=== PATIENT | female | born 1975 | race Caucasian/White ===

== ENCOUNTER → 2017-07-18 06:39 | Outpatient (CLI) | payer OTHER, SELFPAY | PROVIDERS: Family Provider Family Medicine; PCP Family Medicine; Visit Provider Nurse Practitioner Family | DX: L40.0 Psoriasis vulgaris (principal); Z79.899 Other long term (current) drug therapy ==

== ENCOUNTER → 2017-10-24 06:07 | Outpatient (CLI) | payer OTHER, SELFPAY ==
[2017-10-24 07:21] LABS: Absolute Lymphocyte Count 1.23 X10^3/ul (0.83-4.51); Absolute Neutrophil Count 1.9 X10^3/uL (2.0-7.7); Basophil# 0.01 X10^3/uL; Basophil% 0.3 % (0-1); Eosinophil# 0.03 X10^3/uL; Eosinophils% 0.9 % (0-5); Hematocrit 37.1 % (37-47); Hemoglobin 12.1 g/dl (12.0-15.0); Lymphocyte # 1.23 X10^3/ul (4.0); Lymphocyte % 35.5 % (19-41); Mean Corp Hgb Conc 32.6 g/gl (32-36); Mean Corpuscular Hgb 31.2 pg (27.0-32.0); Mean Corpuscular Volume 95.6 fL (81-99); Mean Platelet Vol. 9.2 fl (6.2-12.0); Monocyte# 0.26 X10^3/uL; Monocyte% 7.5 % (0-10); Neutrophil # 1.93 X10^3/uL (2.7-7.7); Neutrophil % 55.8 % (47-70); Platelet Count 221 K/mm3 (150-450); RBC Distribution Width CV 12.7 % (11.6-14.6); Red Blood Count 3.88 M/mm3 (4.2-5.4); White Blood Count 3.5 K/mm3 (4.4-11.0)
[2017-10-24 07:22] LABS: POSITIVE COUNT NO; POSITIVE DIFFERENTIAL NO; POSITIVE MORPHOLOGY NO
== END ==
PROVIDERS: Family Provider Family Medicine; PCP Family Medicine; Visit Provider Nurse Practitioner Family
DX: L82.1 Other seborrheic keratosis (principal); L40.0 Psoriasis vulgaris
CPT/HCPCS: 36415; 85025

== ENCOUNTER → 2018-01-22 16:04 | Outpatient (CLI) | payer OTHER, SELFPAY ==
[2018-01-28 11:02] LABS: HPV Reflexed? NOT INDICATED
== END ==
PROVIDERS: Visit Provider Obstetrics & Gynecology
DX: Z12.4 Encounter for screening for malignant neoplasm of cervix (principal)
CPT/HCPCS: 88175; G0145

== ENCOUNTER → 2018-02-19 14:11 | Outpatient (CLI) | payer OTHER, SELFPAY ==
--- NOTE | 2018-02-19 14:14 | BI_ITS ---
MAMMOGRAPHY - BILATERAL SCREENING REASON FOR EXAM: Female, 42 years old. Routine annual screening examination. PERTINENT HISTORY: Mother with breast cancer. TECHNIQUE: Digital bilateral breast jessica (3D mammographic acquisition) in the CC and MLO projections. 2-D mediolateral oblique (MLO) and craniocaudad (CC) views of both breasts were obtained. CAD: Full Field Digital Mammography with Computer Added Detection was performed. COMPARISON: Comparison is made with prior study dated December 14, 2016 and November 21, 2015. FINDINGS: Breast Composition: The breasts are heterogeneously dense, which may obscure small masses. There are no dominant masses or suspicious calcifications. No other significant abnormalities are identified. There has been no significant change since the prior study. BI/SCREENING MAMM (CAD), BILAT IMPRESSION: Stable bilateral screening mammogram. Yearly follow-up mammogram recommended. (A) ASSESSMENT CATEGORY: BIRADS Category 1: Negative. A letter regarding these results will be sent to the patient by the facility within 30 days. Approximately 10% of breast cancers are not detected by mammography. A normal mammogram should not delay biopsy of a clinically suspicious abnormality. [id number] Electronically Signed: Israel Tafoya MD at 8:06 EDT Tel [phone], Service support ,
== END ==
PROVIDERS: Family Provider Family Medicine; PCP Family Medicine; Visit Provider Obstetrics & Gynecology
DX: Z12.31 Encounter for screening mammogram for malignant neoplasm of breast (principal)
CPT/HCPCS: 77063; 77067

== ENCOUNTER 2018-05-09 05:29 | Day surgery (SDC) | payer OTHER, SELFPAY ==
[2018-05-09 05:44] VITALS: BP 119/91; PULSE 72; RESP 12; TEMP 37.1; O2SAT 100; BMI 22.8
[2018-05-09 05:51] LABS: Internal QC Validated? YES +Cl - CLEAR BKGD; Pregnancy, Urine Negative Negative
[2018-05-09 07:52] VITALS: BP 116/72; BP 119/91; PULSE 70; RESP 16; TEMP 36.8; O2SAT 94
[2018-05-09 07:55] VITALS: BP 110/77; BP 119/91; PULSE 65; RESP 16; O2SAT 94
[2018-05-09 08:00] VITALS: BP 106/71; BP 119/91; PULSE 62; RESP 16; O2SAT 95
[2018-05-09 08:05] VITALS: BP 111/73; BP 119/91; PULSE 65; RESP 16; TEMP 36.6; O2SAT 95
--- NOTE | 2018-05-09 08:09 | OP.PCM_ITS ---
Operative Report Date of Procedure: 05/09/18 Preoperative diagnosis: Right Carpal tunnel syndrome Postoperative diagnosis: Same Title of operation: Open right carpal tunnel release Surgeon: Dr. Peter Rodgers Anesthesia: Local w MAC Indications for surgery: Patient seen and evaluated in the office. Diagnosed with carpal tunnel syndrome. They have failed adequate nonoperative treatment. Due to persistent symptoms they wish to proceed with carpal tunnel release surgery appropriate informed consent was obtained and signed. Details of procedure: Patient was taken to the OR and transferred to the OR table. Appropriate timeouts were performed. Well-padded tourniquet was applied to the operative upper extremity proximally. MAC anesthesia provided. area was prepped with Betadine followed by alcohol. Local anesthetic was administered using 9 cc of 2% lidocaine plain. Operative extremity was prepped padded and draped in usual orthopedic sterile fashion for the procedure. Limb was exsanguinated. Tourniquet applied to 250 mmHg. Three centimeter incision was made over the palm. Carefully taken through skin, subcutaneous tissue, down onto the transverse carpal ligament. Transverse carpal ligament was opened at the midportion with a knife. Elevator was carefully placed underneath the transverse carpal ligament in a distal direction. I dissected down onto that with a knife. Elevator was then placed in a proximal direction, again directly underneath the transverse carpal ligament. I dissected down on that with a kn gregorio. Scissors were used at the proximal extent placed under direct visualization. This fully released the proximal extent of the transverse carpal ligament. At this point my small finger was placed proximally and distally to assure complete release of the transverse carpal ligament over the median nerve. FPL tendon was noted. No significant abnormalities were noted at the region of the carpal canal. Tourniquet was let down. Bleeding controlled with the Bovie. Wound thoroughly irrigated. No undue bleeding noted. Skin edges were reapproximated with a 4-0 nylon. Sterile bandage was applied. Patient was awoken from the anesthetic. Transferred to the room bed. To recovery room in satisfactory condition. Patient will be discharged home. Ice and elevation recommended. Pain medica tion as needed. Follow-up in the office next week as scheduled. This note was generated with [employer] dictation software. It may contain incorrect words, spelling, and punctuation that were not noted in checking the note before signing.
[2018-05-09 08:20] VITALS: BP 119/91
== END 2018-05-09 08:24 | disposition home or self-care (01) ==
LOC: SDC 05:30 → AC 05:31
PROVIDERS: Anesthesiology; Family Provider Family Medicine; PCP Family Medicine; Referring Provider Orthopaedic Surgery; Visit Provider Orthopaedic Surgery
PROC: (CPT 64721; principal; 2018-05-09 07:00)
DX: G56.01 Carpal tunnel syndrome, right upper limb (principal); Z87.891 Personal history of nicotine dependence; F41.9 Anxiety disorder, unspecified
CPT/HCPCS: 64721; 81025; J7120

== ENCOUNTER → 2018-09-15 05:54 | Outpatient (CLI) | payer OTHER, SELFPAY ==
[2018-09-18 06:07] LABS: QNTFERON TB Mitogen Value > 10.00 IU/mL (.); QNTFERON TB Nil Value 0.07 IU/mL (.); QNTFERON TB1+ Ag Value 0.12 IU/mL (.); QNTFERON TB2+ Ag Value 0.08 IU/mL (.)
[2018-09-18 11:24] LABS: QNTIFERON TB Positive Criteria Negative (Negative)
== END ==
PROVIDERS: Family Provider Family Medicine; PCP Family Medicine; Referring Provider Nurse Practitioner Family; Visit Provider Nurse Practitioner Family
DX: L40.0 Psoriasis vulgaris (principal); Z79.899 Other long term (current) drug therapy
CPT/HCPCS: 36415; 86480

== ENCOUNTER 2018-10-28 02:12 | Emergency (ER) | payer OTHER, SELFPAY ==
[2018-10-28 02:13] VITALS: BP 173/88; PULSE 125; RESP 20; TEMP 36.6; O2SAT 100; BMI 22.4
--- NOTE | 2018-10-28 02:27 | ED.VIS.GEN ---
History of Present Illness Chief Complaint: Palpitations Informant: Patient Narrative: Patient presents with tachycardia. She stated that she woke up today and felt like her heart was racing around 170. She coughed and seemed to bring her heart rate back down. She has a history of tachycardia in the past. She is never been diagnosed with a formal tachycardia syndrome but feels like it is likely SVT. She took an Adderall which she takes as needed for tachycardia and it seemed to work. She denies any symptoms. She sees Dr. Muniz for it. She has had a 24-hour Holter in the past that showed no abnormalities. She denies any chest pain shortness of breath. She would like to go home and wanted to make sure she was in SVT. She declined a longer secured entrance monitor evaluation. - Past Medical History (1) Segmental and somatic dysfunction of thoracic region Status: Acute (2) Thoracic neuritis Status: Acute Past Medical History - Allergies and Home Meds Allergies/Adverse Reactions: Allergies No Known Allergies Allergy (Verified 10/28/18 02:16) Primary Care Physician: Rich Gardner DO [Primary Care Provider] - Prior records reviewed: Yes Surgical History: noncontributory Smoking Status: Former smoker Alcohol: None Drugs: None Review of Systems General: Denies: Chills, Fever, Sweats Eyes: Denies: Visual changes - bilaterally, Diplopia ENT: Denies: Rhinorrhea, Sore throat Cardiovascular: Reports: Palpitations, Heart racing. Denies: Chest pain Respiratory: Denies: Dyspnea, Cough, Dyspnea on exertion Gastrointestinal: Denies: Abdominal pain, Nausea, Vomiting, Diarrhea, Melena, Hematochezia Genitourinary: Denies: Dysuria, Hematuria, Frequency Musculoskeletal: Denies: Back pain, Extremity Pain Skin: Denies: Rash, Wounds Neurological: Denies: Headache, Weakness, Numbness Physical Exam Vital Signs/Narrative: Vital Signs Temp Pulse Resp BP Pulse Ox 10/28/18 02:13 97.8 F 125 H 20 H 173/88 H 100 General: Well nourished, Well developed, No Acute Distress Head: Normocephalic, Atraumatic Eyes: Perrl, EOMI ENT: Moist mucous membranes, No rhinorrhea Neck: Supple, Nontender Cardiovascular: No murmurs, Tachycardia. Negative for: Regular rate, Regular rhythm Respiratory: No distress, CTA bilaterally, Chest nontender Abdomen: Soft, Nontender, Nondistended, Normal bowel sounds Back: Nontender, Normal Inspection Extremities: Nontender, No edema Skin: Normal color, No rash Neurological: Alert, Oriented x3, Cranial nerves II-XII grossly intact, Normal Strength, Normal Sensation Psychological: Normal affect, Normal Mood Diagnostic/Tx/Re-eval - Medical Decision Making G shows sinus rhythm at a rate of 111. No ischemia or arrhythmia. Patient watched on the monitor. Heart rate came down in the 90s. Asymptomatic. She does not want lab work or longer watching in the ER. She would like to be discharged. She may have went into SVT but this is no longer the case. She will follow-up as an outpatient. ED Disposition - Plan for ED Patient: Disposition: Home or Assisted Living Instructions: Palpitations Referrals: Rich Gardner DO [Primary Care Provider] - Filipe Muniz MD [STAFF PHYSICIAN] -
--- NOTE | 2018-10-28 02:31 | ED.RN ---
CALLED FOR EKG PER RN REQUEST, PULLED OLD EKGS FOR
[2018-10-28 02:47] VITALS: BP 142/91; PULSE 86; RESP 16; O2SAT 99
--- NOTE | 2018-10-28 02:48 | ED.RN ---
THIS NURSE REVIEWED D/C INSTRUCTIONS WITH PT. PT VERBALIZED UNDERSTANDING OF INSTRUCTIONS. PT DENIES FURTHER NEEDS OR QUESTIONS AT THIS TIME
== END 2018-10-28 02:48 | disposition home or self-care (01) ==
PROVIDERS: Emergency Provider Emergency Medicine; Family Provider Family Medicine; PCP Family Medicine
DX: R00.2 Palpitations (principal); Z87.891 Personal history of nicotine dependence
CPT/HCPCS: 99282

== ENCOUNTER → 2018-12-11 11:50 | Outpatient (CLI) | payer OTHER, SELFPAY ==
--- NOTE | 2018-12-11 11:51 | ECHOD_ITS ---
Reason For Study: Palpitations Procedure This was a 2D Doppler, Color Flow transthoracic echocardiogram. The exam was of adequate technical quality. Exam performed in department. Left Ventricle Normal LV size. Left ventricular systolic function is normal. The estimated ejection fraction is 60 %. The global longitudinal strain = -20 % (normal). No evidence for diastolic dysfunction. No regional wall motion abnormalities noted. Right Ventricle Normal RV size. Normal systolic function. Atria Normal left atrium. Normal right atrium. No doppler evidence for ASD. Mitral Valve There is no mitral annular calcification. Normal mitral valve. Trivial eccentric mitral valve insufficiency. Tricuspid Valve Normal tricuspid valve. Trivial tricuspid valve insufficiency. Aortic Valve Trisinus/trileaflet aortic valve. Normal aortic valve. Pulmonic Valve The pulmonic valve is not well visualized. Great Vessels Normal sized aortic root. Pericardium/Pleural No pericardial effusion. MMode/2D Measurements & Calculations LVIDd: 4.6 cm IVSd: 0.70 cm Ao root diam: 2.8 cm LVIDs: 3.1 cm LVPWd: 0.76 cm RVDd: 3.4 cm FS: 31.5 % LAV(MOD-bp): 58.1 ml EDV(MOD-sp4): 97.0 ml EDV(MOD-sp2): 87.8 ml LAV(MOD-bp) Indexed: 34.4 ml/m2 ESV(MOD-sp4): 41.2 ml EF(MOD-sp2): 59.6 % LAV(MOD-sp2): 65.8 ml EF(MOD-sp4): 57.5 % LAV(MOD-sp4): 51.4 ml SV(MOD-sp4): 55.7 ml SV(MOD-sp2): 52.4 ml LA A4 area: 19.0 cm2 LA dimension(2D): 3.2 cm RA A4 area: 16.3 cm2 Doppler Measurements & Calculations MV E max ceasar: 83.9 cm/sec Lat Peak E' Ceasar: 16.2 cm/sec Med Peak E' Ceasar: 10.3 cm/sec MV A max ceasar: 56.7 cm/sec E/E' lat: 5.2 E/E' med: 8.2 MV E/A: 1.5 Ao V2 max: 152.4 cm/sec LV V1 max: 136.9 cm/sec PA V2 max: 91.5 cm/sec Ao max P.3 mmHg LV V1 max P.5 mmHg Interpretation Summary Left ventricular systolic function is normal. The estimated ejection fraction is 60 %. The global longitudinal strain = -20 % (normal). Trivial eccentric mitral valve insufficiency. Trivial tricuspid valve insufficiency. No evidence for diastolic dysfunction. Ordering Physician: Filipe Muniz Referring Physician: Rich Gardner Performed By: Aida Sharif, RDDEANDRA
== END ==
PROVIDERS: Family Provider Family Medicine; PCP Family Medicine; Referring Provider Internal Medicine Cardiovascular Disease; Visit Provider Internal Medicine Cardiovascular Disease
DX: R00.0 Tachycardia, unspecified (principal)
CPT/HCPCS: 93306

== ENCOUNTER → 2019-03-17 14:30 | Outpatient (CLI) | payer OTHER, SELFPAY ==
[2018-12-12 15:17] VITALS: BMI 22.1
--- NOTE | 2019-03-17 14:33 | BI_ITS ---
MAMMOGRAPHY - BILATERAL SCREENING REASON FOR EXAM: Female, 43 years old. Routine annual screening examination. PERTINENT HISTORY: Mother with breast cancer. TECHNIQUE: Digital bilateral breast sapphire (3D mammographic acquisition) in the CC and MLO projections. 2-D mediolateral oblique (MLO) and craniocaudad (CC) views of both breasts were obtained. CAD: Full Field Digital Mammography with Computer Added Detection was performed. COMPARISON: Comparison is made with prior study February 19, 2018 and December 14, 2016. FINDINGS: Breast Composition: The breasts are heterogeneously dense, which may obscure small masses. There are no dominant masses or suspicious calcifications. No other significant abnormalities are identified. There has been no significant change since the prior study. BI/SCREEN MAMM (CAD) W/SAPPHIRE BILAT IMPRESSION: Stable bilateral screening mammogram. Yearly follow-up mammogram recommended. (A) ASSESSMENT CATEGORY: BIRADS Category 1: Negative. A letter regarding these results will be sent to the patient by the facility within 30 days. Approximately 10% of breast cancers are not detected by mammography. A normal mammogram should not delay biopsy of a clinically suspicious abnormality. [id number] Electronically Signed: Israel Tafoya, at 8:41 EST , Service support ,
== END ==
PROVIDERS: Family Provider Family Medicine; PCP Family Medicine; Referring Provider Obstetrics & Gynecology; Visit Provider Obstetrics & Gynecology
DX: Z12.31 Encounter for screening mammogram for malignant neoplasm of breast (principal)
CPT/HCPCS: 77063; 77067

== ENCOUNTER → 2019-06-11 15:28 | Outpatient (CLI) | payer OTHER, SELFPAY ==
[2018-12-12 15:17] VITALS: BMI 22.1
--- NOTE | 2019-06-11 15:32 | MRI_ITS ---
STUDY: MRI LEFT HIP REASON FOR EXAM: Female, 44 years old. LEFT medial hip pain when running or lunging, NKI. TECHNIQUE: Standardized fat and water weighted pulse sequences were obtained in all 3 orthogonal planes. COMPARISON: X-ray dated July 15, 2015. FINDINGS: Bilateral hip articular cartilage preserved. No acute fracture. No dislocation. No bone marrow edema. No bone destruction. Normal pubic symphysis. Normal sacroiliac joints. Normal lumbar spine. Pelvis intact. Proximal femurs intact. Lumbar spine intact. Normal bilateral labrum. No significant joint effusions. Capsular ligaments intact. No bursitis. Mild bilateral gluteus medius/minimus peritendinitis without tear. Normal hamstring tendons. Normal rectus femoris tendons. Normal iliopsoas tendons. Normally adductor tendons. Visualized intra-abdominal abdominal/pelvic contents within normal limits given technique. CORE SHAPER TOP structures physiologic with small nabothian cysts. Normal neurovascular bundle. Trace deep pelvic free fluid. MRI/Lower Ext Joint Only (Routine) IMPRESSION: Mild bilateral gluteus medius/minimus peritendinitis Electronically Signed: Kalpesh Oliveira DO at 8:55 EST Tel , Service support ,
== END ==
PROVIDERS: PCP Family Medicine; Referring Provider Orthopaedic Surgery; Visit Provider Orthopaedic Surgery
DX: M25.552 Pain in left hip (principal)
CPT/HCPCS: 73721

== ENCOUNTER 2019-06-29 15:58 | Outpatient (RCR) | payer OTHER, SELFPAY ==
[2018-12-12 15:17] VITALS: BMI 22.1
--- NOTE | 2019-07-06 11:18 | HP.PTEVAL_ITS ---
Patient's Visit Information SUSI STARK is a 44 year old F referred to Physical Therapy by Peter Rodgers MD with a diagnosis of L hip pain, gluteal tendonitis. Date of Evaluation: 06/29/19 Physical Therapist: Jakub Camp DPT - Visit Plan Frequency: 1x/Week Duration: 4-6 Weeks Plan: Pt. is currently doing well. I gave her some exercises to work on hip flexibility and strength. Pt. is to trial on own, follow up with PT if symptoms come back. Pt. consents. - Subjective Findings: Pt. is here today for her initial evaluation with diagnosis L hip pain, gluteal tendonitis. Pt. reports increased pain for the past 6 months. Pain with running, but no other time. Pt. reports having a recent injection which has helped. Pt. was able to run yesterday 5 miles without increase insymptoms and no latent effects. Pt. denies N/T. Pt. reports most of her pain as in her groin when she gets it, but overall is doign much better since her injection. She reports almost not coming in today due to feeling better. Pt. reports she is slowly increasing her work outs, was previously 20-30 miles per week. Pt. is hopeful to get back to running more consistently. - Pain L hip Pain Intensity (Out of 10): 0 Pain Intensity Range: 3 Comment: 3/10 pain with running - Objective POSTURE: Pt. has good posture in stance. Pt. has equal hip positioning, normal pelvic postionining. PALAPTION: Pt. has some tenderness at psoas msucle, and gluteal region. NEURO: normal throughout. ROM: Pt. has some mild increase in symptoms with hip IR, no pain with ER, tightness noted with hip extension, no pain. MMT: 5-/5 throughout hip abd and extension, 5/5 with rest of hip motions. GAIT: Pt. has normal gait pattern no increase in symptoms. Normal stair negotaition. - Goals Goal 1:: LTG: Pt. to be I iwth HEP. Goal Time Frame: 4-6 Weeks Goal 2:: STG: Pt. to run 2-3 miles without increase in symptoms. Goal Time Frame: 2-4 Weeks Goal 3:: LTG: Pt. to be able to run upto 30 miles a week without limitations. Goal Time Frame: 4-6 Weeks Goal 4:: LTG: pt. to have increased L lateral hip strength by 1/2 grade Goal Time Frame: 4-6 Weeks Goal 5:: LTG: Pt. tp have increarsed hip flexor and piriformis length symmetrical to R side. Goal Time Frame: 4-6 Weeks - Rehabilitation Potential Physical Therapy Diagnosis: Pt. has signs and symptoms consistent with L hip pain, gluteal tendonitis, but has overall reduced symptoms since her injection. Pt. has some tightness and lateral weakness and would benefit from exercises to address both allowing her to return to running with increased stability and consistency. Rehabilitation Potential: Excellent - Anticipated Interventions Thank you for the opportunity to evaluate your patient. For Medicare and Medicare HMO plans, please review the plan of care and approve it. It will need to be FAXED BACK to us at [phone] for Medicare purposes. For Medicare only, by signing this I certify the plan of care. Please let me know if there are questions or concerns regarding this plan of care. Physician Signature: Date:
--- NOTE | 2019-12-10 07:28 | HP.PT.NRP ---
SUSI STARK was seen in my office for initial evaluation on 06/29/19. The following Plan of Care was established for this patient: Initial Frequency: 1x/Week Initial Duration: 4-6 Weeks This patient was last seen in our office 06/29/19. Pertinent comments regarding their Physical therapy will appear below: Pt. was seen for her initial evaluation in PT. Pt. has not been seen in several months and ill be DC from PT at this point intime. At this point I will be discontinuing this patient from physical therapy. I would be happy to see this patient again in the future if found appropriate by the physician. Thank you! BLANCA IsabelT
== END 2019-06-29 19:00 | disposition home or self-care (01) ==
LOC: PT 15:58
PROVIDERS: PCP Family Medicine; Referring Provider Orthopaedic Surgery; Visit Provider Orthopaedic Surgery
DX: M25.552 Pain in left hip (principal); M76.02 Gluteal tendinitis, left hip
CPT/HCPCS: 97110; 97161

== ENCOUNTER → 2019-09-08 11:12 | Outpatient (CLI) | payer OTHER, SELFPAY ==
[2018-12-12 15:17] VITALS: BMI 22.1
[2019-09-11 03:06] LABS: QNTFERON TB Mitogen Value > 10.00 IU/mL (.); QNTFERON TB Nil Value 0.03 IU/mL (.); QNTFERON TB1+ Ag Value 0.03 IU/mL (.); QNTFERON TB2+ Ag Value 0.03 IU/mL (.)
[2019-09-11 08:30] LABS: QNTIFERON TB Positive Criteria Negative (Negative)
== END ==
PROVIDERS: PCP Family Medicine; Referring Provider Nurse Practitioner Family; Visit Provider Nurse Practitioner Family
DX: L40.0 Psoriasis vulgaris (principal); Z79.899 Other long term (current) drug therapy
CPT/HCPCS: 36415; 86480

== ENCOUNTER → 2020-03-24 16:15 | Outpatient (CLI) | payer OTHER, SELFPAY ==
[2018-12-12 15:17] VITALS: BMI 22.1
--- NOTE | 2020-03-24 16:16 | BI_ITS ---
MAMMOGRAPHY - BILATERAL SCREENING REASON FOR EXAM: Female, 44 years old. Routine annual screening examination. PERTINENT HISTORY: Mother with breast cancer. TECHNIQUE: Digital bilateral breast sapphire (3D mammographic acquisition) in the CC and MLO projections. 2-D mediolateral oblique (MLO) and craniocaudad (CC) views of both breasts were obtained. CAD: Full Field Digital Mammography with Computer Added Detection was performed. COMPARISON: Comparison is made with prior study dated 03/17/2019 and 02/19/2018. FINDINGS: Breast Composition: The breasts are extremely dense, which lowers the sensitivity of mammography. There are no dominant masses or suspicious calcifications. No other significant abnormalities are identified. There has been no significant change since the prior study. BI/SCREEN MAMM (CAD) W/SAPPHIRE BILAT IMPRESSION: Stable bilateral screening mammogram. Yearly follow-up mammogram recommended. (A) ASSESSMENT CATEGORY: BIRADS Category 1: Negative. A letter regarding these results will be sent to the patient by the facility within 30 days. Approximately 10% of breast cancers are not detected by mammography. A normal mammogram should not delay biopsy of a clinically suspicious abnormality. [id number] Electronically Signed: Israel Tafoya, at 8:08 EST , Service support ,
== END ==
PROVIDERS: PCP Family Medicine; Referring Provider Obstetrics & Gynecology; Visit Provider Obstetrics & Gynecology
DX: Z12.31 Encounter for screening mammogram for malignant neoplasm of breast (principal); Z80.3 Family history of malignant neoplasm of breast
CPT/HCPCS: 77063; 77067

== ENCOUNTER → 2020-04-13 16:15 | Outpatient (CLI) | payer OTHER, SELFPAY ==
[2018-12-12 15:17] VITALS: BMI 22.1
[2020-04-18 17:05] LABS: HPV Reflexed? NOT INDICATED
== END ==
PROVIDERS: PCP Family Medicine; Visit Provider Obstetrics & Gynecology
DX: Z12.4 Encounter for screening for malignant neoplasm of cervix (principal)
CPT/HCPCS: 88175; G0145

== ENCOUNTER 2020-05-19 12:42 | Outpatient (CLI) | payer OTHER, SELFPAY ==
[2018-12-12 15:17] VITALS: BMI 22.1
[2020-05-19 12:54] VITALS: BP 151/87; PULSE 69; RESP 16; TEMP 35.9; O2SAT 100; BMI 22.4
[2020-05-19 13:43] VITALS: BP 118/75; PULSE 69; RESP 14; TEMP 36.4; O2SAT 100
[2020-05-19 14:13] VITALS: BP 122/76; PULSE 62; RESP 14; TEMP 36.1; O2SAT 100
[2020-05-19 14:43] VITALS: BP 119/78; PULSE 63; RESP 16; TEMP 36.2; O2SAT 100
[2020-05-19 15:17] VITALS: BP 125/86; PULSE 61; RESP 14; TEMP 36.1; O2SAT 100
== END 2020-05-19 15:17 | disposition home or self-care (01) ==
LOC: MS2OUT 12:43 → MS2 12:43
PROVIDERS: PCP Family Medicine; Referring Provider Nurse Practitioner Acute Care; Visit Provider Nurse Practitioner Acute Care
DX: U07.1 COVID-19 (principal)
CPT/HCPCS: 96365; J7050; M0239; Q0239

== ENCOUNTER → 2020-05-27 11:47 | Outpatient (CLI) | payer OTHER, SELFPAY ==
[2020-05-19 12:54] VITALS: BMI 22.4
--- NOTE | 2020-05-27 11:53 | RAD_ITS ---
STUDY: X-RAY CHEST REASON FOR EXAM: Female, 45 years old. Diagnosed with COVID -13- -- persistent cough TECHNIQUE: PA and lateral views of the chest. COMPARISON: Comparison is made with prior study dated 09/22/2011. FINDINGS: The lungs are clear and expanded. There is no demonstrated pleural abnormality. Normal size heart. Normal mediastinum and camilla. Normal visualized pulmonary arteries. Normal visualized aortic arch and descending thoracic aorta. Normal visualized thoracic spine. Normal visualized ribs, clavicles, and shoulders. There is no demonstrated abnormality of the visualized soft tissue structures of the upper abdomen. RAD/Chest PA and Lateral IMPRESSION: Normal x-ray examination of the chest. Electronically Signed: Israel Tafoya MD at 12:11 EST , Service support ,
== END ==
PROVIDERS: PCP Family Medicine; Visit Provider Family Medicine
DX: R05 Cough (principal)
CPT/HCPCS: 71046

== ENCOUNTER → 2020-11-15 06:03 | Outpatient (CLI) | payer OTHER, SELFPAY ==
[2020-11-18 07:07] LABS: QNTFERON TB Mitogen Value > 10.00 IU/mL (.); QNTFERON TB Nil Value 0.06 IU/mL (.); QNTFERON TB1+ Ag Value 0.06 IU/mL (.); QNTFERON TB2+ Ag Value 0.05 IU/mL (.)
[2020-11-18 08:11] LABS: QNTIFERON TB Positive Criteria Negative (Negative)
== END ==
PROVIDERS: PCP Family Medicine; Referring Provider Dermatology; Visit Provider Dermatology
DX: L40.0 Psoriasis vulgaris (principal); Z79.899 Other long term (current) drug therapy
CPT/HCPCS: 36415; 86480

== ENCOUNTER → 2021-01-05 16:09 | Outpatient (CLI) | payer OTHER, SELFPAY ==
--- NOTE | 2021-01-05 16:29 | MRI_ITS ---
STUDY: MRI RIGHT SHOULDER REASON FOR EXAM: Female, 45 years old. BURSITIS, IMPINGEMENT SYNDROME RT SHOULDER TECHNIQUE: Standardized fat and water weighted pulse sequences were obtained in all 3 orthogonal planes. COMPARISON: None. FINDINGS: Anterior inferior labral tear (axial image 15 and coronal images 7 through 13) with large multiseptated para labral cyst formation. Cyst measures approximately 2.7 cm x 0.8 cm x 2.5 cm. Remainder of the labrum appears intact. Biceps labral anchor intact. Normal intracapsular long biceps tendon. Rotator cuff interval edema (coronal image 16). Capsular ligaments intact. Mild supraspinatus tendinosis without tear. Minimal infraspinatus tendinosis without tear. Minimal subscapularis tendinosis without tear. Normal is minor tendon. Muscle atrophy. Glenohumeral cartilage preserved. Mild acromioclavicular joint arthrosis. Anterior interval preserved. No acute fracture, dislocation or bone destruction. Glenoid humeral joint fluid physiologic. No subacromium subdeltoid bursitis. Intact coracohumeral and coracoacromial ligaments. Normal quadrilateral space. Normal axillary space. Normal deltoid muscle. Normal trapezius muscle. MRI/Upper Ext Joint Only(Routine) IMPRESSION: Anterior inferior labral tear with large paralabral cyst Mild nonspecific rotator cuff interval edema Mild rotator cuff tendinosis without tear Mild AC joint arthrosis without significant impingement Electronically Signed: Kalpesh Oliveira DO at 8:45 EDT Tel , Service support ,
== END ==
PROVIDERS: PCP Family Medicine; Visit Provider Physician Assistant
DX: M75.51 Bursitis of right shoulder (principal); M75.41 Impingement syndrome of right shoulder
CPT/HCPCS: 73221

== ENCOUNTER 2021-01-19 15:02 | Outpatient (RCR) | payer OTHER, SELFPAY ==
--- NOTE | 2021-01-23 08:51 | HP.PTEVAL_ITS ---
Patient's Visit Information SUSI STARK is a 45 year old F referred to Physical Therapy by Dr. Peter Rodgers MD with a diagnosis of R shoulder bursitis, impingement syndrome, superior labral lesion. Date of Evaluation: 01/19/21 Physical Therapist: Jakub Camp DPT - Visit Plan Frequency: 1x/Week Duration: 6 Weeks Plan: Start with end range stretching as tolerated, RTR/deltoid strengthening as tolerated. Add in slow eccentric loading of biceps to increase remolding of proximal biceps tissue. Complete as tolerated. Pt. desires to start with HEP I at this point in time. Pt. to check back in with PT in 2-3 weeks to measure progress. - Subjective Pt. is here today for her R shoulder pain. Pt. reports having pain for a few months now, without mech of injury. She thinks she might have hurt it during wt. lifting at home. Pt. does [employer] work outs at home. Pt. reports having increased pain with reaching over head, behind her head, planking, lifting over head and completing her upper body exercises. Decreased symptoms: rest. Pt. is able to do most job duties without issues. Pt. denies N/T, but does have some referred pain down her arm. She did have an MRI showing a slight labral tear, some slight RTC tendinosis and mild AC joint arthrosis. Pt. has still been able to be active but had to reduce some over head activities. She is having trouble sleeping as well. 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 She reports enjoying w orking out including running and general lifting and would like to get back to this without limitations. - Pain R shoulder Pain Intensity (Out of 10): 1 Pain Intensity Range: 0, 3 - Objective POSTURE: Pt. has normal posture in stance. Normal shoulder heights. No anterior shoulder positioning. Normal head positioning. PALPATION: pt. has tenderness at supraspinatus insertion and proximal end of long head of biceps. No scapular pain noted. NEURO: normal throughout BUEs. ROM: L shoulder: full ROM no issues. R shoulder: flexion 175deg pain at last 10deg and with over pressure. Abd 165deg pain again at end range of motion. Functional ER C4, functional IR L1. Pt. has full PROM throughout BUEs, but pain at end ranges of R shoulder throughout. MMT: L shoulder 5/5 throughout. R shoulder: flexion 5-/5 increase NW, abd 5-/5 increase NW, ER 5-/5 increase NW, IR 5/5 NE, ext 5/5 NE. elbow fl exion 5/5 NE, ext 5/5 NE. - Special Tests R Shoulder Empty Can - SS: Negative R Shoulder Belly Press - SupScap: Negative R Shoulder Neer - Impingement: Positive R Shoulder Keys Emanuel - Impingement: Positive R Shoulder Biceps Load Test - Labrum: Positive R Shoulder Yeargasons - SLAP: Positive R Shoulder Speeds Test - Labrum/Biceps: Positive - Balance/Special Test Scores Quick DASH Score: 25.0000 - Goals Goal 1:: LTG: Pt. to be I with HEP. Goal Time Frame: 4-6 Weeks Goal 2:: LTG: PT. to have full R shoulder ROM without increase in symptoms. Goal Time Frame: 4-6 Weeks Goal 3:: LTG: Pt. to have 5/5 strength throughout R RTC and deltoid without increase in symptoms. Goal Time Frame: 4-6 Weeks Goal 4:: STG: pt. to be able to sleep throughout the night without increase in symptoms. Goal Time Frame: 2-4 Weeks Goal 5:: LTG: Pt. to resume all recreational working out without increase in symptoms. Goal Time Frame: 4-6 Weeks - Rehabilitation Potential Physical Therapy Diagnosis: Pt. has signs and symptoms consistent with R shoulder bursitis, impingement syndrome, superior labral lesion. Pt. has pain with end range overhead and ER/IR motions. Pt. has pain with lifting over head as well. Pt. would benefit from PT to increase RTC/deltoid strength/stability an d increase overall ROM overhead. Rehabilitation Potential: Good - Anticipated Interventions Patient/Client Instruction: Educate patient on: Condition, Plan of Care, Risk Factors, Benefits of Fitness Program For the Purpose of:: To facilitate caregiver knowledge, To improve self management, To prevent re-injury Therapeutic Exercise to Include: Strength training, Power training, Agility training, Flexibilty training, Passive ROM, Active ROM, Scapular Strength/Stabilization For the Purpose of:: To decrease pain, To decrease swelling/inflammation, To increase ROM, To improve nutrient delivery to tissue, To increase oxygenation perfusion, To improve muscle performance and motor function, To improve ability to perform ADL's, To decrease level of supervision to perform tasks, To improve ability of physical actions for home/community/work/leisure, To improve health of tissue, To decrease soft tissue restriction, To increase flexibility/ROM Manual Therapy Techniques to Include: Trigger point massage, Functional dry needling, Soft tissue mobilization Comment: deep friction For the Purpose of:: To decrease pain, To decrease swelling/inflammation, To increase ROM Thank you for the opportunity to evaluate your patient. For Medicare and Medicare HMO plans, please review the plan of care and approve it. It will need to be FAXED BACK to us at [phone] for Medicare purposes. For Medicare only, by signing this I certify the plan of care. Please let me know if there are questions or concerns regarding this plan of care. Physician Signature:_ Date:
--- NOTE | 2021-04-18 12:27 | HP.PTDCNRP_ITS ---
SUSI STARK was seen in my office for initial evaluation on 01/19/21. The following Plan of Care was established for this patient: Initial Frequency: 1x/Week Initial Duration: 6 Weeks Patient/Client Instruction: Educate patient on: Condition, Plan of Care, Risk Factors, Benefits of Fitness Program For the Purpose of:: To facilitate caregiver knowledge, To improve self management, To prevent re-injury Therapeutic Exercise to Include: Strength training, Power training, Agility training, Flexibilty training, Passive ROM, Active ROM, Scapular Strength/Stabilization For the Purpose of:: To decrease pain, To decrease swelling/inflammation, To increase ROM, To improve nutrient delivery to tissue, To increase oxygenation perfusion, To improve muscle performance and motor function, To improve ability to perform ADL's, To decrease level of supervision to perform tasks, To improve ability of physical actions for home/community/work/leisure, To improve health of tissue, To decrease soft tissue restriction, To increase flexibility/ROM Manual Therapy Techniques to Include: Trigger point massage, Functional dry needling, Soft tissue mobilization Comment: deep friction For the Purpose of:: To decrease pain, To decrease swelling/inflammation, To increase ROM This patient was last seen in our office 01/19/21. Pertinent comments regarding their Physical therapy will appear below: Pt. was seen in PT for her R shoulder pain. Pt. was given exercises to work on ROM and strengthening. She desired to work on this on her own and follow up with PT if needed. Pt. has not been seen in several months and will be DC from PT at this point in time. At this point I will be discontinuing this patient from physical therapy. I wo uld be happy to see this patient again in the future if found appropriate by the physician. Thank you! Jakub Camp, DPT Balance/Gait/Functional tests - Balance/Special Test Scores Quick DASH Score: 25.0000
== END 2021-01-19 19:00 | disposition home or self-care (01) ==
LOC: PT 15:02
PROVIDERS: PCP Family Medicine; Referring Provider Orthopaedic Surgery; Visit Provider Orthopaedic Surgery
DX: M75.51 Bursitis of right shoulder (principal); M75.41 Impingement syndrome of right shoulder; S43.431D Superior glenoid labrum lesion of right shoulder, subsequent encounter; X58.XXXD Exposure to other specified factors, subsequent encounter
CPT/HCPCS: 97110; 97161

== ENCOUNTER 2021-04-13 22:52 | Emergency (ER) | payer OTHER, SELFPAY ==
--- NOTE | 2021-04-13 10:50 | EKG12_ITS ---
Test Reason : CP Blood Pressure : / mmHG Vent. Rate : 099 BPM Atrial Rate : 099 BPM P-R Int : 192 ms QRS Dur : 078 ms QT Int : 356 ms P-R-T Axes : 056 032 052 degrees QTc Int : 456 ms Normal sinus rhythm Nonspecific ST and T wave abnormality Abnormal ECG Confirmed by BRADLY LUDWIG, SHAMAR ([id number]), market editor JULIETH MEJIAS ([id number]) on 04/14/2021 1:03:08 PM Referred By: BB Confirmed By:SHAMAR ABDULLAHI MD
[2021-04-13 22:52] VITALS: BP 174/90; PULSE 115; RESP 18; TEMP 36.4; O2SAT 98; BMI 22.9
--- NOTE | 2021-04-13 23:13 | ED.RN ---
PT RESTED IN TRIAGE ROOM 2, HEART RATE CAME DOWN TO 70'S PT STATES SHE FEELS BETTER. BP RECHECK 126/89. PT STATES SHE FEELS BETTER AND WILL GO HOME WITH HER
== END 2021-04-13 23:15 ==
LOC: ED 23:17
PROVIDERS: PCP Family Medicine
DX: R00.2 Palpitations (principal)
CPT/HCPCS: 93005

== ENCOUNTER → 2021-04-24 14:55 | Outpatient (CLI) | payer OTHER, SELFPAY ==
--- NOTE | 2021-04-24 14:57 | BI_ITS ---
MAMMOGRAPHY - BILATERAL SCREENING REASON FOR EXAM: Female, 45 years old. Routine annual screening examination. PERTINENT HISTORY: Mother with breast cancer. TECHNIQUE: Digital bilateral breast sapphire (3D mammographic acquisition) in the CC and MLO projections. 2-D mediolateral oblique (MLO) and craniocaudad (CC) views of both breasts were obtained. CAD: Full Field Digital Mammography with Computer Added Detection was performed. COMPARISON: Comparison is made with prior examination dated 03/24/2020 and 03/17/2019. FINDINGS: Breast Composition: The breasts are extremely dense, which lowers the sensitivity of mammography. There are no dominant masses or suspicious calcifications. No other significant abnormalities are identified. There has been no significant change since the prior study. BI/SCRN MAMM (CAD)W/SAPPHIRE BILAT IMPRESSION: Stable bilateral screening mammogram. Yearly follow-up mammogram recommended. (A) ASSESSMENT CATEGORY: BIRADS Category 1: Negative. A letter regarding these results will be sent to the patient by the facility within 30 days. Approximately 10% of breast cancers are not detected by mammography. A normal mammogram should not delay biopsy of a clinically suspicious abnormality. [id number] Electronically Signed: Israel Tafoya MD at 15:46 EST , Service support ,
== END ==
PROVIDERS: PCP Family Medicine; Referring Provider Obstetrics & Gynecology; Visit Provider Obstetrics & Gynecology
DX: Z12.31 Encounter for screening mammogram for malignant neoplasm of breast (principal); Z80.3 Family history of malignant neoplasm of breast
CPT/HCPCS: 77063; 77067

== ENCOUNTER → 2021-10-20 | Outpatient (CLI) | payer OTHER, SELFPAY ==
--- NOTE | 2021-10-20 08:40 | CT_ITS ---
STUDY: CT CHEST WITHOUT CONTRAST REASON FOR EXAM: Female, 46 years old. CHEST PAIN CALCIUM SCORING OVER READ ONLY RADIATION DOSAGE (If Supplied By Facility): CTDIvol = ( 12.19 ) mGy, DLP = ( 195.04 ) mGycm TECHNIQUE: Transaxial imaging was performed without the administration of intravenous contrast material. Individualized dose optimization techniques were used for this CT. COMPARISON: No relevant priors. FINDINGS: CHEST The lungs are normal. There is no demonstrated pleural abnormality. Normal heart and pericardium. Normal mediastinum. Normal hilar regions. Normal unenhanced pulmonary arteries. Normal aorta arch and descending thoracic aorta. Normal osseous structures. Small hiatal hernia. CT/Limited Chest CT Cardiac Only IMPRESSION: Limited study. No acute abnormality is seen. Electronically Signed: Israel Tafoya MD at 9:22 EDT ,
--- NOTE | 2021-10-20 17:38 | CA.SCORE ---
Calcium Scoring Date of Study:: 10/20/21 Coronary Calcium Scoring: High-resolution Computed Tomographic imaging of the chest was performed on [10/20/2021], with particular attention paid to the coronary arteries. Images from the examination were analyzed for the presence and extent of coronary artery calcification , using coronary calcium quantification software. The patient tolerated the procedure well and there were no complications. The results of the coronary calcification analysis are provided below. Findings Coronary Artery Left Main (LM): 0 Left Anterior Descending (LAD): 0 Left Circumflex (LCX): 0 Right Coronary Artery (RCA): 0 Total Agatston Score: 0 Percentile Ranking: The above is at the 50th percentile ranking. Calcium Scoring Interpretation: 0 No identifiable atherosclerotic plaque. Very low cardiovascular disease risk. <5% chance of presence coronary artery disease A Negative Examination 1-10 Minimal Plaque burden. Significant coronary artery disease very unlikely. 11-100 Mild plaque burden. Likely mild or minimal coronary atherosclerosis. 101-400 Moderate plaque burden Moderate non-obstructive coronary artery disease highly likely. Over 400 Extensive plaque burden. High likelihood of at least one significant coronary stenosis (>50% diameter) Calcium Score: 0 Negative Examination
== END | disposition home or self-care (01) ==
PROVIDERS: PCP Family Medicine; Visit Provider Internal Medicine Cardiovascular Disease
DX: R03.0 Elevated blood-pressure reading, without diagnosis of hypertension (principal); I20.8 Other forms of angina pectoris; R07.9 Chest pain, unspecified
CPT/HCPCS: 75571; 76380; 93788

== ENCOUNTER → 2021-10-23 | Outpatient (CLI) | payer OTHER, SELFPAY ==
--- NOTE | 2021-10-23 13:48 | STE_ITS ---
Reason For Study: Chest Pain Stress Results Protocol: Stress Echocardiogram-Loki Protocol Maximum Predicted HR: 175 bpm Target HR: 149 bpm % Maximum Predicted HR: 89 % DurationHeart Rate Stage (mm:ss) (bpm) BP Comment Baseline 60 140/80Pt denies chest pain Stage 1 3:00 80 120/78Pt denies chest pain Stage 2 3:00 92 124/78Pt denies chest pain Stage 3 3:00 108 140/80Pt denies chest pain Stage 4 3:00 129 146/82Pt denies chest pain Stage 5 3:00 156 158/88Pt denies chest pain Recovery 83 140/80Pt denies chest pain Stress Duration: 15:00 mm:ss Maximum Stress HR: 156 bpm Baseline Echocardiogram Findings Stress Echo Wall motion Data Resting WM Intermediate WM Stress WM ECHO/Stress Test Echo w/o Contrast Interpretation Summary Exercise stress echo. 46-year-old lady with a history of chest pain. Stress protocol: Resting EKG demonstrates normal sinus rhythm with a rate of 64 bpm normal inter vals are noted resting blood pressure is 140/80 mmHg. The patient exercised according to the r egular Loki protocol for a total duration of 15 minutes. Patient completed stage V of the Loki prot ocol. The maximum heart rate attained was 169 bpm which was 96% of max impacted heart rate [facility] workload was 17.5 metabolic equivalents. At rest there were no ST or T wave changes noted to suggest ischemia and at peak exercise upsloping ST changes were noted with did not meet the criteria for ischemia. No clinical angina was noted no arrhythmias were noted the test was terminated due to the target heart rate being achieved. The peak blood pressure was 167/76 which was an excellent blood pressure response to exercise. Stress echocardiographic images. Resting and stress echocardiographic images de monstrated preserved ejection fraction at rest estimated at 55%. Valvular structures were noted to b e normal. At peak exercise there was thickening of all groves and reduction of left ventricular ca vity size peaking ejection fraction at 65% with no wall motion abnormalities present. Conclusion: Exercise stress echo with no EKG or echocardiographic criteria for ischemia at a high workload. Excellent functional capacity. Good blood pressure response to exercise. No arrhythmias noted. Ordering Physician: Grover Gillette Referring Physician: Grover Gillette Performed By: Mauricio Gu RCS
== END | disposition home or self-care (01) ==
LOC: CVS 13:48
PROVIDERS: PCP Family Medicine; Referring Provider Internal Medicine Cardiovascular Disease; Visit Provider Internal Medicine Cardiovascular Disease
DX: R07.9 Chest pain, unspecified (principal)
CPT/HCPCS: 93017; 93350

== ENCOUNTER → 2021-10-24 | Outpatient (CLI) | payer OTHER, SELFPAY ==
--- NOTE | 2021-10-24 15:40 | MRI_ITS ---
STUDY: MRI LEFT FOREFOOT WITHOUT CONTRAST REASON FOR EXAM: Pain in the ball of foot radiating into toes, pain for one year, attention second metatarsophalangeal joint/plantar plate. TECHNIQUE: Standardized fat and water weighted pulse sequences were obtained in all 3 orthogonal planes. COMPARISON: None. FINDINGS: Normal metatarsophalangeal joint of the hallux. Normal tibial and fibular sesamoids, with normal sesamoids-first metatarsal articulations. There is a bipartite tibial sesamoid. Normal interphalangeal joint of the hallux. Normal proximal and distal phalanges of the great toe. Normal medial and lateral heads of the flexor hallucis brevis tendons. Normal flexor and extensor hallucis longus tendons. Normal second through fifth metatarsophalangeal (MTP) joints. There is no demonstrated disruption of the plantar plate of the second metatarsophalangeal joint. Normal interphalangeal joints of the second through fifth toes. Normal proximal, middle and distal phalanges of the second through fifth toes. There is soft tissue fullness at the plantar aspect of the second webspace (T1 short axis image 21) measuring 0.35 cm in transverse dimension. There is mild intermetatarsal bursitis of the first webspace (inversion recovery short axis image 18). Normal flexor and extensor tendons of the second through fifth toes. Normal metatarsals. Normal tarsometatarsal articulations and Lisfranc ligament. Normal tarsal bones of the midfoot and intertarsal articulations. Normal intrinsic muscles of the forefoot and midfoot. There is edema in the subcutis adipose space plantar to the second metatarsophalangeal joint (inversion recovery sagittal images 14-16). There is a ganglion cyst dorsal to the distal talus extending into the sinus tarsi (inversion recovery sagittal images 11-15). MRI/Lower Ext/No Jt/w/o IMPRESSION: Intermetatarsal neuroma of the second webspace. Mild intermetatarsal bursitis of the first webspace. Edema in the subcutis adipose space plantar to the second metatarsophalangeal joint. No demonstrated disruption of the plantar plate of the second metatarsophalangeal joint. Electronically Signed: Kodi Saldana MD at 12:52 EDT ,
== END | disposition home or self-care (01) ==
LOC: MRI 15:31
PROVIDERS: PCP Family Medicine; Referring Provider Student in an Organized Health Care Education/Training Program; Visit Provider Student in an Organized Health Care Education/Training Program
DX: S89.92XA Unspecified injury of left lower leg, initial encounter (principal); M77.42 Metatarsalgia, left foot; M77.52 Other enthesopathy of left foot and ankle
CPT/HCPCS: 73718

== ENCOUNTER → 2021-12-26 | Outpatient (CLI) | payer OTHER, SELFPAY ==
[2021-12-29 17:07] LABS: QNTFERON TB Mitogen Value > 10.00 IU/mL (.); QNTFERON TB Nil Value 0.04 IU/mL (.); QNTFERON TB1+ Ag Value 0.05 IU/mL (.); QNTFERON TB2+ Ag Value 0.04 IU/mL (.)
[2021-12-30 07:44] LABS: Hepatitis B Core Ab Total Negative (Negative); QNTIFERON TB Positive Criteria Negative (Negative)
== END | disposition home or self-care (01) ==
LOC: LAB 12:34
PROVIDERS: PCP Family Medicine; Referring Provider Physician Assistant Medical; Visit Provider Physician Assistant Medical
DX: L40.0 Psoriasis vulgaris (principal); Z79.899 Other long term (current) drug therapy; B07.8 Other viral warts; L53.8 Other specified erythematous conditions; R23.8 Other skin changes
CPT/HCPCS: 36415; 86480; 86704

== ENCOUNTER 2022-05-04 13:20 | Day surgery (SDC) | payer OTHER, SELFPAY ==
[2022-05-01 12:29] LABS: Absolute Lymphocyte Count 1.26 X10^3/uL (0.83-4.51); Absolute Neutrophil Count 2.6 X10^3/uL (2.0-7.7); Basophil# 0.02 X10^3/uL; Basophil% 0.5 % (0-1); Eosinophils% 2.3 % (0-5); Hematocrit 37.8 % (37-47); Lymphocyte # 1.26 X10^3/ul (0.83-4.51); Lymphocyte % 29.3 % (19-41); Mean Corp Hgb Conc 34.4 g/dL (32-36); Mean Corpuscular Hgb 34.1 pg (27.0-32.0); Mean Corpuscular Volume 99.2 fL (81-99); Mean Platelet Vol. 9.2 fl (6.2-12.0); Monocyte# 0.34 X10^3/uL; Monocyte% 7.9 % (0-10); NRBC Flagged by Analyzer 0 % (0-5); Neutrophil # 2.57 X10^3/uL (2.7-7.7); Neutrophil % 59.8 % (47-70); Platelet Count 218 K/mm3 (150-450); RBC Distribution Width CV 11.9 % (11.6-14.6); RBC Distribution Width SD 43.3 fl (35.1-43.9); Red Blood Count 3.81 M/mm3 (4.2-5.4); White Blood Count 4.3 K/mm3 (4.4-11.0)
[2022-05-01 13:18] LABS: ALB/GLOB Ratio 1.1 RATIO (0.9-2.4); AST(SGOT) 21 U/L (15-37); Alanine Aminotransfer ALT/SGPT 39 U/L (13-56); Albumin, Serum 3.9 g/dL (3.2-5.0); Alkaline Phosphatase 60 U/L (45-117); Anion Gap 6 (5-15); BUN 14 mg/dL (7-18); BUN/Creat Ratio 18.5 RATIO (10-20); Chloride 103 mmol/L (98-107); Creatinine, Serum 0.76 mg/dL (0.55-1.02); EST Glomerular Filtration Rate 88 mL/min (>60); Est Glom Filt Rate - Afr Amer 106 mL/min (>60); Globulin 3.4 g/dL (2.2-4.2); Glucose 107 mg/dL (74-106); Protein, Total 7.3 g/dL (6.4-8.2); Sodium Level 136 mmol/L (136-145)
[2022-05-04] MEDS: Lactated Ringers 1,000 ML 15 ML IV (13:30)
[2022-05-04 13:49] LABS: Internal QC Validated? YES +Cl - CLEAR BKGD; Pregnancy, Urine Negative Negative
[2022-05-04 13:52] VITALS: BP 118/74; PULSE 66; RESP 19; TEMP 36.4; O2SAT 100; BMI 21.6
--- NOTE | 2022-05-04 14:20 | DCINST_ITS ---
Discharge Instructions Diet Discharge Diet: No restrictions Activity Discharge Activity: May Shower (Cover with cast bag when showering. Please keep dressings clean dry and intact to the left foot) Weight Bearing Status: Partial weight bearing (Protected weightbearing in surgical shoe. Elevate foot at times of rest) Keep extremity elevated above heart level: Left Leg (Elevate lower extremity at all times of rest) Dressing / Incision Call your doctor if you observe: Fever of 101 or Higher, Chest pain, Calf discomfort and Uncontrolled pain Change Dressing in: leave in place till F/U (Physician will change dressing at first postoperative appointment) Remove Dressing in: leave in place till F/U (Do not remove dressing.) Cleanse incision/area with: Do not get Incision Wet and Keep Dressing Clean & Dry Follow Up Care Please Follow Up With: Jovanni Williamson DPM When: Patient has first postoperative appointment scheduled Test Results: Test results from this visit will be discussed in further detail at your follow- up appointment, if applicable. Discharge Plan Admission Attending Provider: Jovanni Williamson Primary Care Provider: Rich Gardner Discharge Orders/Prescriptions Prescriptions: New oxycodone-acetaminophen 5-325 mg tablet 1 tab PO Q6H PRN (Reason: pain) 7 Days Qty: 28 0RF No Action citalopram [Celexa] 20 mg tablet 20 mg PO QDAY magnesium oxide 500 MG capsule 500 mg PO DAILY cholecalciferol (vitamin D3) 2,000 UNIT capsule 2,000 unit PO DAILY multivitamin with folic acid 1 TABLET tablet 1 tab PO DAILY ustekinumab 45 mg/0.5 mL syringe 45 mg subcut [id number] Label Comments: EVERY 90 DAYS Referrals / Follow Up: Rich Gardner DO [Primary Care Provider] - Disposition Disposition (needs filled in before D/C Order can be placed): Home, Self Care
[2022-05-04] MEDS: Cefazolin 2 GM in 0.9% Normal Saline 100 ML IV (14:30)
[2022-05-04] MEDS: Lidocaine 1% (30 ml sdv) 30 ML Vial (14:57)
--- NOTE | 2022-05-04 15:10 | OP.PCM_ITS ---
Problems Associated Problem List Diagnoses (1) Lesion of plantar nerve, left lower limb: (2) Pain in left foot: Report of Operation Date of Procedure: 05/04/22 Pre-Operative Diagnosis: Neuroma second interspace left foot Post-Operative Diagnosis: Neuroma second interspace left foot Surgery/Procedure Performed:: Decompression of the second interspace of the left foot via incision of the deep transverse intermetatarsal ligament Description of Surgical Findings:: See operative report for findings Surgeon: Jovanni Williamson campus aide: Oliverio Kirkpatrick DPM PGY-2 Type of Anesthesia: Local (16 cc 1% lidocaine plain and 5 cc 0.75% Marcaine plain) Specimen's removed: None Drains: None Estimated Blood Loss (mL): < 3mL Description of Procedure: HPI/indication: Patient is a 46-year-old female who presented to the office with pain in the forefoot following her long runs. She runs for exercise and during peak performance was averaging 30 miles a week however recently sided discomfort within the first 5 to 6 miles into her run that would cause her to stop due to increasing pain in the lesser digits. On examination there was a small palpable click noted at the second interspace consistent with findings of a neuroma. She denied numbness in the second or third digit. She did have capsulitis pain in the second and third digit. She had tried supportive shoe gear with custom orthotics with metatarsal pad and oral steroid course which did help. She was able to return to running for a short time however the pain did return. MRI was performed on 10/24/2021 of the left foot demonstrating intermetatarsal neuroma of the second webspace, mild intermetatarsal bursitis of the first webspace, no disruption of the plantar plate of the second metatarsophalangeal joint, and edema in the subcutis adipose space plantar to the second metatarsophalangeal joint. She elected to undergo corticosteroid injection of the first interspace to target the bursitis. This did improve her condition. She attempted to return to running after a small period of pain-free daily activity however she did get increasing pain again in the second digit. Due to her limiting pain and significant symptoms despite nonsurgical care we discussed surgical intervention for decompression of the second interspace through surgical release of the deep transverse intermetatarsal ligament as well as excision of the neuroma of the second interspace. Risks and benefits of each were discussed in great detail. Each procedure was discussed in great detail. Patient was adamant about not exercising the neuroma because I do not want the nerve cut out and to have numbness for the rest of my life. Decision was made to attempt decompression of this interspace prior to any other further intervention. I discussed with her the risks include but are not limited to: Pain, continued pain, deformity, persistent symptoms of numbness, numbness about the surgical site, swelling, neuritis, scarring, poor cosmetic result, bleeding, the need for further surgery/procedures, nonhealing/delayed healing, dehiscence, infection, blood clots, allergic reaction, transfer lesion, loss of function, complex regional pain syndrome, weakness, floating toe, contracted toe, deviated toe, stroke, heart attack, addiction to pain medication. Patient was able to repeat these back. Patient voices understanding of this. Typical postoperative course was reviewed. Patient continued to express understanding and agreement. Surgical consent were reviewed with patient and patient freely signed them. No guarantees were given. She underwent surgical clearance by PCP. She was scheduled to undergo decompression of the second intermetatarsal space via incision of the deep transverse intermetatarsal ligament at [facility] on 05/04/2022. Procedure: Under mild sedation patient was brought to the operating placed on the table in the supine position. A local anesthetic block was then performed of the first, second, and third interspace to achieve adequate localized anesthesia consisting of 16 cc 1% lidocaine plain. The foot was then scrubbed, prepped, and draped in the usual aseptic manner. At this time attention was directed to the left foot second interspace where an incision was placed in the second webspace utilizing a #15 blade. This was deepened to the subcutaneous tissues via blunt dissection. At this time the deep transverse intermetatarsal ligament was identified with a hemostat and transected sharply with a Metzenbaum scissor. Following release of the deep transverse intermetatarsal ligament adequate decompression of the intermetatarsal space was noted. The foot was then loaded to simulate weightbearing with all digits remaining aligned. Patient was then asked to flex and extend the distal digits which were noted to range smoothly and in perfect alignment. No deviation was noted during the active ranging of the digits. Site was then flushed with copious amounts of normal sterile saline. The subcutaneous tissues were then closed with a with a 4-0 Monocryl and the skin reapproximated with a 4-0 Prolene. A local anesthetic block was then performed of the first, second, and third interspace to achieve adequate postoperative block consisting of 5 cc 0.75% Marcaine plain. Local anesthetic tolerated well, patient was transported the PACU with vital signs stable and vascular status intact to the left foot. She was instructed to elevate the left foot at all times of rest. She may ambulate within a surgical shoe or her cam boot. She was instructed to keep dressings clean, dry, and intact to the left foot. She and her understand the postoperative instructions and received her outlined postoperative instructions. She will follow-up in the office next week for her first postoperative appointment. Grafts/Implants Used: None Complications None Admit VTE Documentation VTE Present on Admission: No VTE Mechan Device Prophylaxis: SCD's VTE Pharm Prophylaxis ordered?: No Reason prophylaxis not ordered:: Procedure Not Indicated
--- NOTE | 2022-05-04 15:20 | RAD_ITS ---
INDICATION: Post-operative intermetatarsal ligament release EXAMINATION/TECHNIQUE: X-RAY - LEFT XR Foot Min 3 Views 0 VIEWS COMPARISON: None. FINDINGS: SOFT TISSUES: No soft tissue swelling or gas. No radiopaque foreign body. BONES/JOINTS: No acute fracture or subluxation.. Normal alignment. Preservation of the joint space.. No sclerotic or destructive changes observed. RAD/Foot min 3 Views IMPRESSION: Negative. Electronically Signed: Henry Morse MD at 16:07 EST ,
[2022-05-04 15:38] VITALS: BP 118/74; BP 127/84; PULSE 61; RESP 16; TEMP 36.9; O2SAT 100
== END 2022-05-04 15:47 | disposition home or self-care (01) ==
LOC: SDC 13:20 → AC 13:21
PROVIDERS: Anesthesiology; PCP Family Medicine; Referring Provider Student in an Organized Health Care Education/Training Program; Visit Provider Student in an Organized Health Care Education/Training Program
PROC: (CPT 28008; principal; 2022-05-04 14:15)
DX: G57.62 Lesion of plantar nerve, left lower limb (principal); M79.672 Pain in left foot; R60.0 Localized edema; E78.00 Pure hypercholesterolemia, unspecified; F41.9 Anxiety disorder, unspecified
CPT/HCPCS: 64726; 36415; 73630; 80053; 81025; 85025; J7120

== ENCOUNTER → 2022-05-15 | Outpatient (CLI) | payer OTHER, SELFPAY ==
--- NOTE | 2022-05-15 14:37 | BI_ITS ---
MAMMOGRAPHY - BILATERAL SCREENING REASON FOR EXAM: Female, 46 years old. Routine annual screening examination. PERTINENT HISTORY: Mother with breast cancer. TECHNIQUE: Digital bilateral breast sapphire (3D mammographic acquisition) in the CC and MLO projections. 2-D mediolateral oblique (MLO) and craniocaudad (CC) views of both breasts were obtained. CAD: Full Field Digital Mammography with Computer Added Detection was performed. COMPARISON: Comparison is made with prior study 04/24/2021 and 03/24/2020. FINDINGS: Breast Composition: The breasts are extremely dense, which lowers the sensitivity of mammography. There are no dominant masses or suspicious calcifications. No other significant abnormalities are identified. There has been no significant change since the prior study. BI/SCRN MAMM (CAD)W/SAPPHIRE BILAT IMPRESSION: Stable bilateral screening mammogram. Yearly follow-up mammogram recommended. (A) ASSESSMENT CATEGORY: BIRADS Category 1: Negative. A letter regarding these results will be sent to the patient by the facility within 30 days. Approximately 10% of breast cancers are not detected by mammography. A normal mammogram should not delay biopsy of a clinically suspicious abnormality. [id number] Electronically Signed: Israel Tafoya MD at 15:29 EST ,
== END | disposition home or self-care (01) ==
LOC: OPBI 14:35
PROVIDERS: PCP Family Medicine; Visit Provider Family Medicine
DX: Z12.31 Encounter for screening mammogram for malignant neoplasm of breast (principal); Z80.3 Family history of malignant neoplasm of breast
CPT/HCPCS: 77063; 77067

== ENCOUNTER → 2022-07-09 | Outpatient (CLI) | payer OTHER, SELFPAY ==
[2022-07-16 17:01] LABS: HPV APTIMA, High Risk Negative (Negative)
== END | disposition home or self-care (01) ==
LOC: LABSPEC 16:45
PROVIDERS: PCP Family Medicine; Referring Provider Registered Nurse; Visit Provider Registered Nurse
DX: Z12.4 Encounter for screening for malignant neoplasm of cervix (principal)
CPT/HCPCS: 87624; 88175; G0145

== ENCOUNTER 2022-10-30 15:57 | Outpatient (RCR) | payer OTHER, SELFPAY ==
--- NOTE | 2022-10-30 16:46 | HP.PTEVAL_ITS ---
Patient's Visit Information SUSI STARK is a 47 year old F referred to Physical Therapy by Dr. Peter Rodgers MD with a diagnosis of R impingement, bursitis. Date of Evaluation: 10/30/22 Physical Therapist: Kalpesh Mayo, DPT, OCS, CSCS - Visit Plan Frequency: 2x /Week Duration: 4-6 Weeks Plan: 2x/week for 3-6 weeks for. 1. activity modificaiton to keep pain away. 2. strength RC and posture with postural focus. 3. US nonthermal to R biceps tendon area. 4. ice as needed. Manual grade 1-2 g-h mobs R, pec stretches if toelrated. - Subjective R shoulder arm hurts. been hurting since January of 2021, not sure why. Had cortisone which helped briefly. Had MRI which showed tendonitis and small labral tear. Will have another one as it has gotten worse. It keeps her up at night now with pain R shoulder and down to elbow. It started being worse int he last 6 months. dressing hurts, sleeping hurts, comfortable at rest. Sleeps on her tummy. 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 Workout regularly running and can do that, Avoids lifting due to shoulder pain, has stopped for last 9 months. Rested but not helping. On meloxicam. Hobbies: darts and cannot play. No neck problems, no numbness or tingling. - Pain R shoulder Pain Intensity (Out of 10): 0 Pain Intensity Range: 0, 8 Comment: sleeping is worse - Objective Walks into PT I, transfers I, comfortable at rest, arm swings well. Fulkl cervical aROM and scap AROM without pain. wrist and elbow AROM full and painfree. Shoulder elevation and er/ir painful at end range 6/10, gone at rest.Er AROM 55 R and 75 L. PROM full but still painful with elevation and er, IR end range. reflexes 2/3 bi and tri. Sensation UE WNL to gross light touch. Strength is 5 wrists, 4 + elbow flexion and ext B with some R sided pain. supination without pain B. shoulder er painful mild, IR mild pain both on R, 4/5. flexion and abduction painful R 4-. + HK, + neer, + labral R, - drop arm, - ext rotation lag test. - Balance/Special Test Scores Quick DASH Score: 43.1800 - Goals Goal 1:: Pain 1/10 at worst adn manageable 75% better. Goal Time Frame: 4-6 Weeks Goal 2:: sleep without interruption form shoulder at night Goal Time Frame: 4-6 Weeks Goal 3:: Full aROM without pain Goal Time Frame: 4-6 Weeks Goal 4:: I appropriate managemnt of condition Goal Time Frame: 4-6 Weeks Goal 5:: Return to appropriate upper body workout. Goal Time Frame: 4-6 Weeks Goal 6:: 18 or less quick dash - Rehabilitation Potential Physical Therapy Diagnosis: R impingement vs labral pathology. Rehabilitation Potential: Questionable - Anticipated Interventions Patient/Client Instruction: Educate patient on: Condition, Plan of Care For the Purpose of:: To decrease pain, To increase ROM, To improve nutrient delivery to tissue, To improve muscle performance and motor function, To increase tolerance to activity/condition/position, To improve ability of physical actions for home/community/work/leisure Therapeutic Exercise to Include: Strength training, Postural training, Passive ROM, Active ROM For the Purpose of:: To decrease pain, To increase ROM, To improve nutrient delivery to tissue, To increase tolerance to activity/condition/position Manual Therapy Techniques to Include: Mobilization, Soft tissue mobilization For the Purpose of:: To decrease pain, To increase ROM, To improve nutrient delivery to tissue Cryotherapy (ice pack, ice massage): Yes Ultrasound (thermal/non thermal): Yes - nonthermal R g-h For the Purpose of:: To decrease pain, To decrease swelling/inflammation, To improve nutrient delivery to tissue Thank you for the opportunity to evaluate your patient. For Medicare and Medicare HMO plans, please review the plan of care and approve it. It will need to be FAXED BACK to us at [phone] for Medicare purposes. For Medicare only, by signing this I certify the plan of care. Please let me know if there are questions or concerns regarding this plan of care. Physician Signature: Date:
--- NOTE | 2023-01-14 07:17 | HP.PT.NRP ---
Patient Information Patient Information: SUSI STARK was seen in my office for initial evaluation on 10/30/22. The following Plan of Care was established for this patient: POC Established Initial Frequency: 2x /Week Initial Duration: 4-6 Weeks Anticipated Interventions Patient/Client Instruction: Educate patient on: Condition and Plan of Care For the Purpose of:: To decrease pain, To increase ROM, To improve nutrient delivery to tissue, To improve muscle performance and motor function, To increase tolerance to activity/condition/position and To improve ability of physical actions for home/community/work/leisure Therapeutic Exercise to Include: Strength training, Postural training, Passive ROM and Active ROM For the Purpose of:: To decrease pain, To increase ROM, To improve nutrient delivery to tissue and To increase tolerance to activity/condition/position Manual Therapy Techniques to Include: Mobilization and Soft tissue mobilization For the Purpose of:: To decrease pain, To increase ROM and To improve nutrient delivery to tissue Cryotherapy (ice pack, ice massage): Yes Ultrasound (thermal/non thermal): Yes (nonthermal R g-h) For the Purpose of:: To decrease pain, To decrease swelling/inflammation and To improve nutrient delivery to tissue Last Seen Last Seen: This patient was last seen in our office 10/30/22. Pertinent comments regarding their Physical therapy will appear below: Pt seen one visit for evaluation and POC established. Pt did not schedule or return for any visits of POC. At this point, it has been over 2 months and i will discontinue due to nonattendance. At this point I will be discontinuing this patient from physical therapy. I would be happy to see this patient again in the future if found appropriate by the physician. Thank you! Kalpesh Mayo, DPT, OCS, CSCS Balance/Gait/Functional tests Balance/Special Test Scores Quick DASH Score: 43.1800
== END 2022-10-30 19:00 | disposition home or self-care (01) ==
LOC: PT 15:57
PROVIDERS: PCP Family Medicine; Referring Provider Orthopaedic Surgery; Visit Provider Orthopaedic Surgery
DX: M75.51 Bursitis of right shoulder (principal); M75.41 Impingement syndrome of right shoulder; M25.511 Pain in right shoulder
CPT/HCPCS: 97110; 97161

== ENCOUNTER → 2022-11-10 | Outpatient (CLI) | payer OTHER, SELFPAY ==
--- NOTE | 2022-11-10 07:30 | MRI_ITS ---
STUDY: MRI RIGHT SHOULDER REASON FOR EXAM: Female, 47 years old. PAIN RIGHT SHOULDER EXTENDING DOWN RT ARM TECHNIQUE: Standardized fat and water weighted pulse sequences were obtained in all 3 orthogonal planes. COMPARISON: MRI of the right shoulder dated January 06, 2020 FINDINGS: There is interval appearance of large full-thickness tears of the supraspinatus, infraspinatus, and proximal aspect of the teres minor tendons. The supraspinatus tendon is retracted proximal to the biceps labral complex and 5.1 cm from the greater tuberosity. A large joint effusion is present which also communicates into the subdeltoid and subacromial bursal regions. The intracapsular aspect elongated biceps tendon is intact but is partially torn and diffusely thinned. The humeral head is also slightly high riding nearly abutting the undersurface of the acromium. A 180 degree tear of the anterior aspect of the glenoid labrum is present with slight attachment. Normal subscapularis tendon. There is moderate muscular atrophy of the supraspinatus muscle. There is moderate muscular atrophy of the infraspinatus muscle. Mild to moderate strain edema is also present in the infraspinatus muscle. Normal subscapularis muscle. Normal teres minor muscle. Normal glenohumeral articulation. Normal humeral head and visualized proximal humerus. Normal capsulo- ligamentous complex. Normal rotator interval. There is mild osteoarthritis of the acromioclavicular articulation. There is a Type II morphology (curved), with a neutral orientation. Normal visualized coracohumeral and coracoacromial ligaments. Normal quadrilateral space. Normal axillary space. Normal deltoid muscle. Normal trapezius muscle. MRI/Upper Ext Joint Only(Routine) IMPRESSION: 1. There is interval appearance of large full-thickness tears of the supraspinatus, infraspinatus, and proximal aspect of the teres minor tendons. The supraspinatus tendon is retracted proximal to the biceps labral complex and 5.1 cm from the greater tuberosity. A large joint effusion is present which also communicates into the subdeltoid and subacromial bursal regions. 2. The intracapsular aspect elongated biceps tendon is intact but is partially torn and diffusely thinned. The humeral head is also slightly high riding nearly abutting the undersurface of the acromium. 3. A 180 degree tear of the anterior aspect of the glenoid labrum is present with slight attachment. Electronically Signed: Godwin Payne MD at 11:31 EDT ,
== END | disposition home or self-care (01) ==
PROVIDERS: PCP Family Medicine; Referring Provider Orthopaedic Surgery; Visit Provider Orthopaedic Surgery
DX: M25.511 Pain in right shoulder (principal)
CPT/HCPCS: 73221

== ENCOUNTER → 2023-02-07 | Outpatient (CLI) | payer OTHER, SELFPAY ==
[2023-02-09 12:08] LABS: QNTFERON TB Mitogen Value > 10.00 IU/mL (.); QNTFERON TB Nil Value 0.06 IU/mL (.); QNTFERON TB1+ Ag Value 0.05 IU/mL (.); QNTFERON TB2+ Ag Value 0.06 IU/mL (.); QNTIFERON TB Positive Criteria Negative (Negative)
== END | disposition home or self-care (01) ==
LOC: LAB 11:55
PROVIDERS: PCP Family Medicine; Referring Provider Dermatology; Visit Provider Dermatology
DX: L40.0 Psoriasis vulgaris (principal); Z79.899 Other long term (current) drug therapy
CPT/HCPCS: 36415; 86480

== ENCOUNTER 2023-05-10 15:00 | Outpatient (RCR) | payer OTHER, SELFPAY ==
--- NOTE | 2023-01-16 09:46 | HP.PTEVAL_ITS ---
Patient's Visit Information Visit Information Visit Information: SUSI STARK is a 47 year old F referred to Physical Therapy by Dr. 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 Date of Evaluation: 01/16/23 Physical Therapist: Kalpesh Mayo, DPT, OCS, CSCS Visit Plan Frequency: 2-3x /Week Duration: 4-6 Weeks Plan: 2-3x/week for up to 3 months. start PROM and teach family PROM until 02/07/23, needs to be in sling until 02/07. Progress per [facility] protocol in protocol folder to AAROM to aROM 02/07- 03/10 and then strength to tolerance May use ice as needed. 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 surgery went well. Pain has not been a big issue, only if she rolls the wrong way. Sleeps in recliner in sling. In sling all day except shower unti 02/07/23, abductor wedge out this week. No exercises, just don't do the arm. 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 Basic ADls are getting done slowly with L UE. Is a runner, can do elliptical with L UE. Pain R shoulder: Pain Intensity (Out of 10): 0 Pain Intensity Range: 0 and 3 Objective Objective: R shoulder in sling which is donned and doffed I today. Cervical aROM full and painfree scapular AROM slow on R but able adn without pain. elbow and wrist and hand AROM WFL and without pain. L UE AROM full and painfree. R PROM shoulder joint: flexion 50 abduction 45 external rotation 20 all limited with pain and tight endfeel Incisions have healed well and have no signs of redness heat or swelling. Only slight palpable scar tissue under each incision. Balance/Special Test Scores Quick DASH Score: 38.6350 Goals Goal 1:: ST: PROM to 150 flex abd and 60 er Goal Time Frame: 2-4 Weeks Goal 2:: LT goals: Full AROM as allowed by protocol Goal Time Frame: 6-8 Weeks Goal 3:: LT: Able to do hair and get dressed without pain or hesitancy Goal Time Frame: 6-8 Weeks Goal 4:: ST: sleep in bed without problems Goal Time Frame: 4-6 Weeks Goal 5:: LT: plan to return to work Goal Time Frame: 8-12 Weeks Goal 6:: Return to running without pain Goal Time Frame: 8-12 Weeks Rehabilitation Potential Physical Therapy Diagnosis: RCT s/p repair with limited ROM and healing to this point. causing dysfunction of movement and function. Rehabilitation Potential: Good Anticipated Interventions Patient/Client Instruction: Educate patient on: Condition and Plan of Care For the Purpose of:: To decrease pain, To increase ROM, To improve nutrient delivery to tissue, To improve muscle performance and motor function, To increase tolerance to activity/condition/position and To improve ability of physical actions for home/community/work/leisure Therapeutic Exercise to Include: Passive ROM For the Purpose of:: To decrease pain, To increase ROM, To improve nutrient delivery to tissue, To improve muscle performance and motor function and To increase tolerance to activity/condition/position Text: Thank you for the opportunity to evaluate your patient. For Medicare and Medicare HMO plans, please review the plan of care and approve it. It will need to be FAXED BACK to us at [phone] for Medicare purposes. For Medicare only, by signing this I certify the plan of care. Please let me know if there are questions or concerns regarding this plan of care. Physician Signature: Date:
--- NOTE | 2023-03-12 17:43 | HP.PTREVAL ---
Re-Evaluation Intro: Dr. Eugenio Loyd MD, It has been my pleasure to treat SUSI STARK over the last 17 visits for RCT, massive, s/p repair 12/13/22. Please see the progress note below for an update on the physical therapy plan of care! Subjective Subjective: To doc next week. No pain really. Sleeping well. returned to work without problems or pain. HEP going well. Mptoion improving. Objective Objective/Function: 145 flexion and 140 abduction aROM, 45 er and L5 IR. tightness at end but no unusual pain. Doing well with AROM and can now get more aggressive. Plan Plan Plan: weekly for phase 3 once released by doctor(next week?) Balance/Gait/Functional tests Balance/Special Test Scores Quick DASH Score: 22.7250 Goals Goals Goal 1:: ST: PROM to 150 flex abd and 60 er Goal Time Frame: 2-4 Weeks Goal Progress: Progressing Goal 2:: LT goals: Full AROM as allowed by protocol Goal Time Frame: 6-8 Weeks Goal 3:: LT: Able to do hair and get dressed without pain or hesitancy Goal Time Frame: 6-8 Weeks Goal 4:: ST: sleep in bed without problems Goal Time Frame: 4-6 Weeks Goal 5:: LT: plan to return to work Goal Time Frame: 8-12 Weeks Goal 6:: Return to running without pain Goal Time Frame: 8-12 Weeks Anticipated Interventions Anticipated Interventions Patient/Client Instruction: Educate patient on: Condition and Plan of Care For the Purpose of:: To decrease pain, To increase ROM, To improve nutrient delivery to tissue, To improve muscle performance and motor function, To increase tolerance to activity/condition/position and To improve ability of physical actions for home/community/work/leisure Therapeutic Exercise to Include: Passive ROM For the Purpose of:: To decrease pain, To increase ROM, To improve nutrient delivery to tissue, To improve muscle performance and motor function and To increase tolerance to activity/condition/position Re-Evaluation Ending Re-evaluation ending: Please do not hesitate to contact me at [phone] by phone or if you have questions or concerns regarding this new plan of care! Sincerely, Kalpesh Mayo, DPT, OCS, CSCS
--- NOTE | 2023-05-10 15:28 | HP.PTDCSUM ---
Discharge Summary D/C summary: It has been my pleasure to treat SUSI STARK referred by Dr. Eugenio Loyd MD, with the diagnosis of RCT, massive, s/p repair 12/13/22 for a total of 23 visit(s). Discharge Date: 05/10/23 Please see the following information for a summary of their discharge status. Subjective Subjective: Shoulder is doing well. Still can't do dart throwing and hard to get to bra strap behind her. Workout is normal . sleep is OK. Working full duty. No compensations. Careful with running and elliptical buit listens to body. Pain R shoulder: Pain Intensity (Out of 10): 0 Overall Improvement % Improvement: 75 Objective Objective/Function: 65 er R vs 75 L, IR limited R slightly vs L and funcitonally can get to bra with L but not R. elevation is funcitonal around 150 but still limited expectedly at top vs L at 165. Goals Goal 1:: ST: PROM to 150 flex abd and 60 er Goal Progress: Goal Met Goal 2:: LT goals: Full AROM as allowed by protocol Goal Progress: Goal Met Goal 3:: LT: Able to do hair and get dressed without pain or hesitancy Goal Progress: Goal Met, exccept bra Goal 4:: ST: sleep in bed without problems Goal Progress: Goal Met Goal 5:: LT: plan to return to work Goal Progress: Goal Met Goal 6:: Return to running without pain Goal Progress: Goal Met Plan Plan: d/c to HEP, educate today on adding WB ex method and mil press machine gently. Improtance of continuing cuff and postural strength. D/C Information Discharge Comments: to doctor 06/19 d/c sentence: If there are questions or concerns regarding this patient's physical therapy, please feel free to call me at [phone]. Thank you for the referral of this patient. Sincerely, Kalpesh Mayo, DPT, OCS, CSCS Balance/Gait/Functional tests Balance/Special Test Scores Quick DASH Score: 17.5000 Improvement % Improvement: 75
== END 2023-05-10 19:00 | disposition home or self-care (01) ==
LOC: PT 15:00
PROVIDERS: PCP Family Medicine; Referring Provider Orthopaedic Surgery; Visit Provider Orthopaedic Surgery
DX: M75.121 Complete rotator cuff tear or rupture of right shoulder, not specified as traumatic (principal)
CPT/HCPCS: 97110; 97140; 97161; 97164; 97530

== ENCOUNTER → 2023-07-08 | Outpatient (CLI) | payer OTHER, SELFPAY ==
--- NOTE | 2023-07-08 14:56 | BI_ITS ---
MAMMOGRAPHY - BILATERAL SCREENING 3-D TOMOSYNTHESIS REASON FOR EXAM: Female, 48 years old. SCREENING PERTINENT HISTORY: No significant family history. TECHNIQUE: 2-D mammograms and 3-D Tomosynthesis of the breast (s) were performed. CAD was performed. COMPARISON: 05/15/2022 FINDINGS: The breast composition is heterogeneously dense that can obscure small breast masses. Scattered benign calcifications are seen. No dense spiculated masses or suspicious microcalcifications are identified. No architectural distortion is identified. There is no skin thickening or retraction. There has been no significant change since the prior study. BI/SCRN MAMM (CAD)W/SAPPHIRE BILAT IMPRESSION: No mammographic signs of malignancy. Routine yearly mammograms recommended. ASSESSMENT CATEGORY: BIRADS Category 1: Negative. A letter regarding these results will be sent to the patient by the facility within 30 days. FOLLOW UP RECOMMENDATION: Yearly follow up mammogram recommended. (A) Approximately 10% of breast cancers are not detected by mammography. A normal mammogram should not delay biopsy of a clinically suspicious abnormality. Electronically Signed: Jesus Pete MD at 15:38 EST ,
--- OUTSIDE RECORDS SUMMARY | 2023-07-08 19:03 | XMS RPT_ITS | CCD ---
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 Name Role Phone EDWIN JETT Referring Unavailable Problems Problem Classification Problem Date Documented Da te Episodic/Chronic Other non-traumatic joint disorders (1 source) Pain in right wrist; Translations: [Pain in right wrist] Onset: 06-28-2018 Episodic Results Test Name Value Interpretation Reference Range Facil ity Encounters Encounter Date Encounter Type Care Provider Facility Start: 06-28-2018 End: 06-30-2018 Patient encounter procedure EDWIN JETT [facility] Summary Purpose Family History No Family History Records Found Advance Directives No Advanced Directives Records Found Additional Source Comments INFORMATION SOURCE (unrecogn ized section and content) FOR RECORDS PERTAINING TO PATIENTS WHO ARE OR HAVE BEEN ENROLLED IN A CHEMICAL DEPENDENCY/SUBSTANCEABUSE PROGRAM, SOME INFORMATION MAY BE OMITTED. This clinical summary was aggregated from multiple sources. Caution should be exercised in using it in the provision of clinical care. This summary normalizes information from multiple sources, and as a consequence, information in this document may materially change the coding, format and clinical context of patient data. In addition, data may be omitted in some cases. CLINICAL DECISIONS SHOULD BE BASED ON THE PRIMARY CLINICAL RECORDS. [facility]. provides no warranty or guarantee of the accuracy or completeness of information in this document.
== END | disposition home or self-care (01) ==
LOC: OPBI 14:55
PROVIDERS: PCP Family Medicine; Referring Provider Family Medicine; Visit Provider Family Medicine
DX: Z12.31 Encounter for screening mammogram for malignant neoplasm of breast (principal)
CPT/HCPCS: 77063; 77067

== ENCOUNTER → 2023-11-01 | Outpatient (CLI) | payer OTHER, SELFPAY ==
[2023-11-01 09:52] LABS: Vitamin D,25 Hydroxy 36.6 ng/mL
[2023-11-01 10:00] LABS: T4 Free Direct 0.77 ng/dL (0.76-1.46); Thyroid Stim Hormone (TSH) 0.88 uIU/mL (0.358-3.74)
[2023-11-02 08:10] LABS: Thyroid Peroxidase AB < 9 IU/mL (0-34)
== END | disposition home or self-care (01) ==
LOC: LAB 09:09
PROVIDERS: PCP Family Medicine; Referring Provider Nurse Practitioner Women's Health; Visit Provider Nurse Practitioner Women's Health
DX: Z13.21 Encounter for screening for nutritional disorder (principal); R53.83 Other fatigue; Z13.29 Encounter for screening for other suspected endocrine disorder
CPT/HCPCS: 36415; 82306; 84439; 84443; 86376

== ENCOUNTER 2024-01-04 04:13 | Emergency (ER) | payer OTHER, SELFPAY ==
[2024-01-04 04:13] VITALS: BP 173/94; PULSE 103; RESP 18; TEMP 36.2; O2SAT 98; BMI 22.3
--- NOTE | 2024-01-04 04:25 | RAD_ITS ---
EXAM: XR RIGHT HAND COMPLETE, 3 OR MORE VIEWS CLINICAL INDICATION: trauma TECHNIQUE: Frontal, lateral and oblique views of the right hand. COMPARISON: No relevant prior studies available. FINDINGS: BONES/JOINTS: Unremarkable. No acute fracture. No subluxation. Normal alignment. Preservation of the joint space. No sclerotic or destructive changes observed. SOFT TISSUES: Unremarkable. No soft tissue swelling or gas. No radiopaque foreign body. RAD/Hand Min 3 Views IMPRESSION: Negative right hand x-rays. Electronically Signed: Demetris Saenz MD at 5:00 EDT ,
--- NOTE | 2024-01-04 04:35 | EDS_ITS ---
HPI History of Present Illness Chief Complaint: Upper Extremity Injury Informant: patient Narrative Narrative: Patient slipped and fell coming down some steps this past evening and several hours ago, she caught herself on outstretched right hand, she states it was painful right away and bruised and swelled fairly quickly. [id number]. No other injuries. [facility] Medical History Anxiety Former smoker History of stress test History of echocardiogram Pure hypercholesterolemia Palpitations Sinus tachycardia Segmental and somatic dysfunction of thoracic region Thoracic neuritis Vasovagal syncope Carpal tunnel syndrome Home Medications ?Medication ?Instructions ?Recorded ?Last Taken ?Type cholecalciferol (vitamin D3) 50 2,000 unit PO DAILY 05/21/16 Unknown History mcg (2,000 unit) capsule magnesium oxide 500 mg capsule 500 mg PO DAILY 05/21/16 Unknown History multivitamin with folic acid 400 1 tab PO DAILY 05/21/16 Unknown History mcg tablet citalopram 20 mg tablet (Celexa) 20 mg PO QDAY 12/17/17 Unknown History ustekinumab 45 mg/0.5 mL 45 mg subcut [id number] 10/19/21 Unknown History subcutaneous syringe Allergy/AdvReac Type Severity Reaction Status Date / Time No Known Allergies Allergy Verified 01/04/24 04:13 Family History Mother CAD (coronary artery disease) Cancer Breast Diabetes Hypertension Father Myocardial infarction, Onset Age: 70 CAD (coronary artery disease) STENT Uncle Myocardial infarction, Onset Age: 50 CAD (coronary artery disease) STENTS Surgical History H/O arthroscopic knee surgery History of cardiac catheterization History of carpal tunnel surgery History of knee surgery History of left heart catheterization (LHC) (03/04/08) Status post left foot surgery Social History Smoking Status: Former smoker alcohol intake: current details: occasional substance use type: does not use caffeine: Yes Type: coffee Number of servings: 1 seatbelt use: always additional social history: Spouse- Jose (Esteban Gilberto Door ROS ROS ED Constitutional Constitutional ED: Denies chills or fever(s) Musculoskeletal Musculoskeletal: Reports extremity pain; Denies neck pain Integumentary Denies Abrasions, rash or wounds Neurologic Neurologic: Denies paresthesias or weakness EXAM Physical Exam Const Vital Signs: 01/04/24 04:13 Temperature 97.2 F L Temperature Source Temporal Pulse Rate 103 H Respiratory Rate 18 Blood Pressure 173/94 H Blood Pressure Mean 120 Pulse Ox 98 Oxygen Delivery Method Room Air Positive well nourished and well developed General Appearance ED: well developed and NAD Neck full ROM and supple Back/Spine normal ROM and normal to inspection Extremity Extremity Narrative: Ecchymosis and some swelling about the radial aspect proximal right dorsal hand. The index finger metacarpal was nontender. The scaphoid is tender and there is also pain with axial loading of the thumb but the thumb metacarpal is nontender. Limited range of motion of the wrist due to pain. No tenderness at the distal radius or ulna. The rest of the right upper extremity is benign. Neuro oriented x3, no focal motor deficits and no sensory deficits noted Sensorium / Orientation: alert Psych mental status grossly normal and thought process normal Skin no wounds Rashes: no rashes MDM MDM MDM Narrative Medical decision making narrative: Due to ER volume nurses put in protocol orders for the patient's hand, 4 views of my interpretation show no acute fracture or dislocation, but on my exam I think she needs dedicated wrist views specifically to look at the scaphoid which I am most concerned about. 3 views of the wrist on my interpretation also negative, I see no obvious scaphoid fracture however I counseled the patient regarding the possibility of an occult scaphoid fracture and the need for follow-up. I placed her in a thumb spica splint that it was prefabricated since there is nothing unstable here, and she can follow-up with orthopedics as an outpatient she is already established with Dr. Peter Rodgers so she is okay following up with him. Discharge Plan Triage Chief Complaint: Upper Extremity Injury ED Provider: Shashi Espinoza Dx/Rx/DC Orders Clinical Impression: Right wrist sprain Instructions: ED Possible Wrist Fracture Prescriptions: No Action citalopram [Celexa] 20 mg tablet 20 mg PO QDAY magnesium oxide 500 MG capsule 500 mg PO DAILY cholecalciferol (vitamin D3) 2,000 UNIT capsule 2,000 unit PO DAILY multivitamin with folic acid 1 TABLET tablet 1 tab PO DAILY ustekinumab 45 mg/0.5 mL syringe 45 mg subcut [id number] Patient Comments: EVERY 90 DAYS Primary Care Provider: Rich Gardner Referrals: Rich Gardner DO [Primary Care Provider] - Peter Rodgers MD [Med Staff - Active Staff] - As soon as possible Print Language: Albanian Disposition Disposition: Home, Self Care
--- NOTE | 2024-01-04 04:40 | RAD_ITS ---
EXAM: XR RIGHT WRIST COMPLETE, 3 OR MORE VIEWS CLINICAL INDICATION: injury TECHNIQUE: Frontal, lateral and oblique views of the right wrist. COMPARISON: No relevant prior studies available. FINDINGS: BONES/JOINTS: Unremarkable. No acute fracture. No subluxation. Normal alignment. Preservation of the joint space. No sclerotic or destructive changes observed. SOFT TISSUES: Unremarkable. No soft tissue swelling or gas. No radiopaque foreign body. RAD/Wrist min 3 Views IMPRESSION: Negative right wrist x-rays. Electronically Signed: Demetris Saenz MD at 5:03 EDT ,
[2024-01-04 05:12] VITALS: BP 132/97; PULSE 81; RESP 14; TEMP 36.6; O2SAT 99
== END 2024-01-04 05:17 | disposition home or self-care (01) ==
PROVIDERS: Emergency Provider Emergency Medicine; PCP Family Medicine; Visit Provider Emergency Medicine
DX: S63.91XA Sprain of unspecified part of right wrist and hand, initial encounter (principal); E78.00 Pure hypercholesterolemia, unspecified; Z87.891 Personal history of nicotine dependence; W10.9XXA Fall (on) (from) unspecified stairs and steps, initial encounter; F41.9 Anxiety disorder, unspecified; Z79.899 Other long term (current) drug therapy
CPT/HCPCS: 73110; 73130; 99283

== ENCOUNTER → 2024-03-27 | Outpatient (CLI) | payer OTHER, SELFPAY ==
[2024-03-31 19:07] LABS: QNTFERON TB Mitogen Value > 10.00 IU/mL (.); QNTFERON TB Nil Value 0.04 IU/mL (.); QNTFERON TB1+ Ag Value 0.08 IU/mL (.); QNTFERON TB2+ Ag Value 0.07 IU/mL (.); QNTIFERON TB Positive Criteria Negative (Negative)
== END | disposition home or self-care (01) ==
LOC: MTLAB 15:53
PROVIDERS: PCP Family Medicine; Referring Provider Physician Assistant; Visit Provider Physician Assistant
DX: L40.0 Psoriasis vulgaris (principal); Z79.899 Other long term (current) drug therapy
CPT/HCPCS: 36415; 86480

== ENCOUNTER → 2024-08-11 | Outpatient (CLI) | payer OTHER, SELFPAY ==
--- NOTE | 2024-08-11 14:45 | BI_ITS ---
EXAM: SCRN MAMM (CAD)W/SAPPHIRE BILAT 08/11/2024 CLINICAL HISTORY: F, Age 49 y/o , SCREEN FOR BREAST CANCER TECHNIQUE: Bilateral screening digital breast tomosynthesis with 2D and 3D images. Computer aided detection. COMPARISON: Prior exam(s) dated 07/08/2023. FINDINGS: TISSUE DENSITY: The breast tissue is heterogenously dense, which may obscure small masses. The mammogram demonstrates that the patient has dense breasts. Supplemental screening with whole breast ultrasound or MRI may be considered for further evaluation. Bilateral Breast Mammographic Findings: No significant masses, calcifications or other abnormalities are identified. BI/SCRN MAMM (CAD)W/SAPPHIRE BILAT IMPRESSION: Right Breast: BIRADS 1 NEGATIVE. Left Breast: BIRADS 1 NEGATIVE. OVERALL FINAL ASSESSMENT: BIRADS 1 NEGATIVE. RECOMMENDATION: Routine annual follow-up in 1 Year A letter with findings and recommendations will be mailed to the patient. Reading Location: [id number]
== END | disposition home or self-care (01) ==
LOC: OPBI 14:26
PROVIDERS: PCP Family Medicine; Referring Provider Nurse Practitioner Family; Visit Provider Nurse Practitioner Family
DX: Z12.31 Encounter for screening mammogram for malignant neoplasm of breast (principal)
CPT/HCPCS: 77063; 77067

== ENCOUNTER → 2025-01-18 | Outpatient (CLI) | payer OTHER, SELFPAY ==
--- NOTE | 2025-01-18 15:50 | RAD_ITS ---
PROCEDURE: TIBIA FIBULA 2 VIEWS 01/18/2025 REASON FOR EXAM: PAIN TECHNIQUE: Procedure Code: RADTF Modality: DX Procedure: TIBIA FIBULA 2 VIEWS Laterality: FINDINGS: No evidence of acute fracture or dislocation. The soft tissues are unremarkable. RAD/Tibia & Fibula 2 Views IMPRESSION: No acute osseous abnormalities. Reading Location: [id number]
== END | disposition home or self-care (01) ==
LOC: MTRAD 15:50
PROVIDERS: PCP Family Medicine; Referring Provider Physician Assistant; Visit Provider Physician Assistant
DX: R52 Pain, unspecified (principal)
CPT/HCPCS: 73590

== ENCOUNTER → 2025-03-04 | Outpatient (CLI) | payer OTHER, SELFPAY ==
[2025-03-06 05:07] LABS: QNTFERON TB Mitogen Value > 10.00 IU/mL (.); QNTFERON TB Nil Value 0.04 IU/mL (.); QNTFERON TB1+ Ag Value 0.06 IU/mL (.); QNTFERON TB2+ Ag Value 0.06 IU/mL (.); QNTIFERON TB Positive Criteria Negative (Negative)
== END | disposition home or self-care (01) ==
LOC: MTLAB 15:49
PROVIDERS: PCP Family Medicine; Referring Provider Dermatology; Visit Provider Dermatology
DX: L40.0 Psoriasis vulgaris (principal)
CPT/HCPCS: 36415; 86480